=== PATIENT | male | born 1955 | race Caucasian/White ===

== ENCOUNTER 2022-02-25 13:40 | Outpatient (CLI) | payer BC | END 2022-02-25 13:41 | disposition home or self-care (01) | LOC: BICRAD 13:40 | PROVIDERS: ATTEND Nurse Practitioner Family | DX: M25.562 Pain in left knee (principal) ==

== ENCOUNTER 2025-04-18 08:37 | Outpatient (CLI) | payer MEDICARE ==
[2025-04-18] MEDS ORDERED: Barium Sulfate 96% 176 GM BOT (xray ONLY) ONE (09:00)
[2025-04-18] MEDS ORDERED: E-Z-HD 98% W/W 340GM BOT (x-ray ONLY) ONE (09:00)
== END 2025-04-18 08:38 | disposition home or self-care (01) ==
LOC: RAD 08:37
PROVIDERS: ATTEND Otolaryngology Otolaryngic Allergy
DX: K21.9 Gastro-esophageal reflux disease without esophagitis (principal); K22.2 Esophageal obstruction; R19.2 Visible peristalsis
CPT/HCPCS: 74220